=== PATIENT | male | born 1985 | race Caucasian/White ===

== ENCOUNTER 2017-05-08 16:17 | Emergency (ER) | payer OTHER, MEDICAID ==
[~2017-05-08] VITALS: Ht 160 cm; Wt 72.2 kg
[2017-05-08 16:23] VITALS: BP 132/78
== END 2017-05-08 18:50 | disposition home or self-care (01) ==
LOC: ED 16:17
DX: S61.231A Puncture wound without foreign body of left index finger without damage to nail, initial encounter (principal); X58.XXXA Exposure to other specified factors, initial encounter; Y93.89 Activity, other specified; Y92.89 Other specified places as the place of occurrence of the external cause; Y99.8 Other external cause status
CPT/HCPCS: 90715; J1885

== ENCOUNTER 2018-05-09 23:22 | Emergency (ER) | payer OTHER ==
[~2018-05-09] VITALS: Ht 160 cm; Wt 72.7 kg
[2018-05-10 01:37] VITALS: BP 106/62
== END 2018-05-10 01:37 | disposition home or self-care (01) ==
LOC: ED 23:22
DX: M62.830 Muscle spasm of back (principal)
CPT/HCPCS: J1885